=== PATIENT | female | born 1970 | race Caucasian/White ===

== ENCOUNTER → 2016-10-24 | Day surgery (SDC) | payer OTHER, MEDICARE ==
[~2016-10-24] VITALS: Ht 162.6 cm; Wt 69.9 kg
[~2016-10-24] MED LIST: ALBUTEROL SULFAT3 M1 INH; ALEVE220 MG PO; ALLOPURINOL100 MG PO; ALPRAZOLAM0.5 M3 PO; AMITRIPTYLINE H10 M1; AMITRIPTYLINE H25 M1 PO; AUGMENTIN 875875 MG PO; BUPROPION HYDR300 M1 PO; BUSPIRONE HCL10 MG PO; DICYCLOMINE HCL10 MG PO; DILAUDID2 MG PO; DIPHENOXYLATE H1 TAB PO; FERROUS SULFAT325 M1 PO; FERROUS SULFAT325 M3 PO; FLUOXETINE HCL20 M2 PO; GABAPENTIN300 MG PO; GARCINIA CAMBOGIA PO; HUMIRA (4040 MG/0.8 SC; HUMIRA PEN40 MG/0.8 SC; HYOSCYAMINE0.125 M2 PO; LEVSIN0.125 M1 PO; LOMOTIL 0.025 M1 TAB PO; MERCAPTOPURINE50 MG PO; METOCLOPRAMIDE10 MG PO; NEXIUM40 M1 PO; NYSTATIN100000 U/M PO; OXYCODONE HCL10 M2 PO; OXYCODONE HCL5 MG PO; OXYCONTIN20 M1 PO; OXYCONTIN20 MG PO; PERCOCET 325 MG1 TA2 PO; PHENERGAN12.5 M1 PO; PREDNICOT20 MG PO; PREDNISONE 10MG10 MG PO; PREDNISONE 20MG20 MG PO; PREDNISONE10 MG PO; PROAIR HFA0.09 MG/Ac INH; QUESTRAN LI4 GM/5 GM PO; RASPBERRY KETONE PO; TRAMADOL HCL50 M1 PO; TYLENOL #4 3001 TAB PO; VALIUM5 M1 PO; WELLBUTRIN XL300 M2 PO; XANAX0.5 M1 PO; ZOFRAN ODT4 M1 SL; ZOFRAN ODT4 MG SL
--- NOTE | 2016-10-24 11:11 | Operative Report ---
Operative/Inv Procedure Report Surgery Date: 10/24/16 Name of Procedure: D&C hysteroscopy Pre-Operative Diagnosis: Metromenorrhagia Post-Operative Diagnosis: Same Estimated Blood Loss: less than 50ml Surgeon/Risk Investigator: LA SEXTON MD Anesthesia: moderate sedation Operative/Procedure Note Note: Patient was taken to the operating room placed in dorsal supine position. After adequate anesthesia, patient was prepped and draped for surgery. Examination under anesthesia was performed. CO2 tenaculum was placed on the anterior lip of the cervix gentle downward traction was used. The cervix was dilated 29 Hegar to left insertion of the hysteroscope. Under direct visualization to hysteroscopy was performed using gas hysteroscope was removed and endocervical curettage was performed. And endometrial curettage was performed. All instruments removed from the vagina. The counts were correct the patient was awakened from anesthesia. And transported to recovery room awake and alert. Findings: Atrophic lining of the uterus no adnexal masses otherwise normal anatomy
== END ==
LOC: STS 03:46
DX: N92.1 Excessive and frequent menstruation with irregular cycle (principal); J45.909 Unspecified asthma, uncomplicated; K21.9 Gastro-esophageal reflux disease without esophagitis; K50.90 Crohn's disease, unspecified, without complications; Z72.0 Tobacco use
CPT/HCPCS: 81025; 88305; J0131; J2250